=== PATIENT | female | born 1995 | race Caucasian/White ===

== ENCOUNTER 2019-08-12 14:02 | Emergency (ER) | payer BC ==
--- NOTE | 2019-08-12 15:08 | CT ---
CT cervical spine Technique: Multiple axial sections were obtained from above C1 inferiorly to the bottom of T2. Reconstructed sagittal and coronal images were reviewed. Findings: Slight ligamentum nuchal calcification is seen. Vertebral body heights and disc spaces are maintained. No fracture is appreciated within the cervical spine. No abnormal subluxation is identified. No bony central or bony neural foraminal stenosis is seen. Impression: 1. Incidental ligamentum nuchal calcification. 2. Nothing acute is appreciated on CT study of the cervical spine. Diagnostic code #2
--- NOTE | 2019-08-12 15:10 | CT ---
Head CT Technique: Multiple axial sections through the brain were obtained. Intravenous contrast was not utilized. Comparison: [facility] head CT study of 08/17/11. Findings: Ventricles along with basal cisterns and sulci over convexities appear within normal limits for the patient's age. No abnormal parenchymal densities are seen. No evidence of intracranial hemorrhage or mass effect. Bone window settings were reviewed which shows no acute calvarial abnormality. Visualized mastoid sinuses and paranasal sinuses show nothing acute. Impression: 1. Nothing acute is seen on noncontrast head CT exam. Diagnostic code #1
--- NOTE | 2019-08-12 15:54 | EDM.PDOC ---
ED HPI GENERAL MEDICAL PROBLEM - General Chief Complaint: Head Injury Stated Complaint: BUCKED OFF HORSE HEAD INJURY Time Seen by Provider: 08/12/19 14:29 Source of Information: Reports: Patient, Family History Limitations: Reports: No Limitations - History of Present Illness INITIAL COMMENTS - FREE TEXT/NARRATIVE: The patient presents after being bucked off of her horse with a headache, neck pain and tailbone pain. She was getting off her horse and he bucked. She landed on her buttocks and then head. She has a headache but no numbness or weakness. She has some neck pain. She has pain to her coccyx. She hurt it back in January. She had no LOC. She walked in to the ER. Onset: Sudden Duration: Minutes: Location: Reports: Head, Neck, Other (Coccyx) Quality: Reports: Sharp Severity: Moderate Improves with: Reports: None Worsens with: Reports: None Associated Symptoms: Reports: Headaches. Denies: Chest Pain, Fever/Chills, Nausea/Vomiting, Shortness of Breath Head Pain Score (Numeric/FACES): 6 - Related Data Allergies Allergy/AdvReac Type Severity Reaction Status Date / Time latex Allergy Rash Verified 08/12/19 14:15 Penicillins Allergy Rash Verified 08/12/19 14:15 Home Meds: Home Meds Ethinyl Estradiol/Drospirenone [Hortencia 3 mg-0.02 mg Tablet] 1 each PO DAILY 08/12 [History] Past Medical History Cardiovascular History: Reports: None Respiratory History: Reports: None Gastrointestinal History: Reports: None Genitourinary History: Reports: None FNP History: Reports: None Neurological History: Reports: None Psychiatric History: Reports: None Endocrine/Metabolic History: Reports: None Hematologic History: Reports: None Immunologic History: Reports: None Oncologic (Cancer) History: Reports: None Dermatologic History: Reports: None - Infectious Disease History Infectious Disease History: Reports: None - Past Surgical History Head Surgeries/Procedures: Reports: None HEENT Surgical History: Reports: Oral Surgery Other Musculoskeletal Surgeries/Procedures:: Left hand surgery. Social & Family History - Tobacco Use Smoking Status *Q: Never Smoker - Caffeine Use Caffeine Use: Reports: Coffee - Recreational Drug Use Recreational Drug Use: No ED ROS GENERAL - Review of Systems Review Of Systems: See Below Constitutional: Reports: No Symptoms HEENT: Reports: No Symptoms Respiratory: Reports: No Symptoms Cardiovascular: Reports: No Symptoms Endocrine: Reports: No Symptoms GI/Abdominal: Reports: No Symptoms : Reports: No Symptoms Musculoskeletal: Reports: Neck Pain, Other (Coccyx pain) ED EXAM, HEAD INJURY - Physical Exam Exam: See Below Exam Limited By: No Limitations General Appearance: Alert, No Apparent Distress Head: Atraumatic, Normocephalic Ears: Normal External Exam Nose: Normal Inspection Neck: Tenderness (Mild midline tenderness) Respiratory: No Respiratory Distress, Lungs Clear, Normal Breath Sounds Cardiovascular: Regular Rate, Rhythm, No Edema, No Murmur GI/Abdominal Exam: Soft, Non-Tender, No Organomegaly, No Mass Back Exam: Normal Inspection Extremities: Normal Inspection Course - Vital Signs Last Recorded V/S: Last Vital Signs Temp 98.5 F 08/12/19 14:12 Pulse 90 08/12/19 14:12 Resp 16 08/12/19 14:12 BP 117/72 08/12/19 14:12 Pulse Ox 100 08/12/19 14:12 - Re-Assessments/Exams Free Text/Narrative Re-Assessment/Exam: 08/12/19 15:[address] of her head and cervical spine and they looked good. I will discharge her home. Departure - Departure Time of Disposition: 15:55 Disposition: Home, Self-Care 01 Condition: Good Clinical Impression: Concussion injury of brain, Animal-rider injured by fall from or being thrown from horse in noncollision accident, initial encounter, Coccyx pain - Discharge Information *PRESCRIPTION DRUG MONITORING PROGRAM REVIEWED*: No *COPY OF PRESCRIPTION DRUG MONITORING REPORT IN PATIENT RADHA: No Referrals: Sophia Rios MD [Primary Care Provider] - 1 Week Additional Instructions: Try to take it easy the next couple of days. Take tylenol or motrin for any pain. Please return if you are worse.
== END 2019-08-12 16:18 | disposition home or self-care (01) ==
LOC: JD.ED 14:02
DX: S06.0X0A Concussion without loss of consciousness, initial encounter (principal); M53.3 Sacrococcygeal disorders, not elsewhere classified; Z88.0 Allergy status to penicillin; Z91.040 Latex allergy status; V80.010A Animal-rider injured by fall from or being thrown from horse in noncollision accident, initial encounter; Y93.89 Activity, other specified
CPT/HCPCS: 70450; 70450-26; 72125; 72125-26; 99283; 99284-25

== ENCOUNTER 2021-08-02 08:29 | Emergency (ER) | payer BC ==
[2021-08-02] MEDS ORDERED: HYDROmorphone 0.5 MG/0.5 ML Syringe IVPUSH ONE (09:05)
[2021-08-02] MEDS ORDERED: Metoclopramide 10 MG/2 ML SDV IVPUSH ONE (09:05)
--- NOTE | 2021-08-02 09:13 | EDM.PDOC ---
ED HPI GENERAL MEDICAL PROBLEM - General Chief Complaint: Trauma Stated Complaint: BUCKED OFF HORSE THIS AM Time Seen by Provider: 08/02/21 09:08 Source of Information: Reports: Patient, Family History Limitations: Reports: No Limitations - History of Present Illness INITIAL COMMENTS - FREE TEXT/NARRATIVE: 26-year-old female who is in good health presents to the ED after being bucked off a horse this morning at approximately 0745 hrs. She believes the saddle horn hit her in the right lower quadrant of the abdomen just above the inguinal ligament making it very difficult to walk or flex her hip on the right side. She denies hitting her head or hurting her neck. No back pain no rib pain she believes she landed a bit on her left shoulder but has no significant discomfort in the shoulder at this time. Pain is primarily right lower quadrant of the abdomen. She rates it as 8 out of 10. Denies possibility of . Has not voided since time of injury. She is on oral contraceptive control. She is allergic to latex and penicillin. Onset: Today, Sudden Onset Date: 08/02/21 Onset Time: 07:45 Duration: Minutes:, Getting Worse Location: Reports: Abdomen (Right lower quadrant of the abdomen just above the inguinal ligament) Quality: Reports: Ache Severity: Moderate Improves with: Reports: Rest Worsens with: Reports: Movement (Any attempt to flex or fully weight-bear on the right leg causes significant pain in the right lower quadrant of the abdomen) Context: Reports: Trauma (Bucked off a horse this morning.). 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: Other (see below) (None.) Right Pelvic Pain Score (Numeric/FACES): 9 - Related Data Allergies Allergy/AdvReac Type Severity Reaction Status Date / Time latex Allergy Rash Verified 08/02/21 09:01 Penicillins Allergy Rash Verified 08/02/21 09:01 Home Meds: Home Meds Ethinyl Estradiol/Drospirenone [Hortencia 3 mg-0.02 mg Tablet] 1 each PO DAILY 11/29 [History] oxyCODONE HCl/Acetaminophen [Percocet 5-325 mg Tablet] 1 each PO Q4H PRN #15 tablet 08/02/21 [Rx] Past Medical History Cardiovascular History: Reports: None Respiratory History: Reports: None Gastrointestinal History: Reports: None Genitourinary History: Reports: None [employer] History: Reports: None Neurological History: Reports: None Psychiatric History: Reports: None Endocrine/Metabolic History: Reports: None Hematologic History: Reports: None Immunologic History: Reports: None Oncologic (Cancer) History: Reports: None Dermatologic History: Reports: None - Infectious Disease History Infectious Disease History: Reports: None - Past Surgical History Head Surgeries/Procedures: Reports: None HEENT Surgical History: Reports: Oral Surgery Other Musculoskeletal Surgeries/Procedures:: Left hand surgery. Social & Family History - Caffeine Use Caffeine Use: Reports: Coffee - Living Situation & Occupation Living situation: Reports: Single Occupation: Employed Review of Systems - Review of Systems Review Of Systems: See Below Constitutional: Reports: No Symptoms Eyes: Reports: No Symptoms Ears: Reports: No Symptoms Nose: Reports: No Symptoms Mouth/Throat: Reports: No Symptoms Respiratory: Reports: No Symptoms Cardiovascular: Reports: No Symptoms GI/Abdominal: Reports: No Symptoms Genitourinary: Reports: No Symptoms Musculoskeletal: Reports: No Symptoms Skin: Reports: No Symptoms Neurological: Reports: No Symptoms Psychiatric: Reports: No Symptoms ED EXAM, GENERAL - Physical Exam Exam: See Below Exam Limited By: No Limitations General Appearance: Alert, WD/WN, Mild Distress, Other (Temperature is 36.2 degrees heart rate 54 and sinus respiratory is 18 with O2 sats 100% room air. BP is 103/61) Throat/Mouth: Normal Inspection, Normal Lips, Normal Oropharynx, Other Head: Atraumatic (No injury to the tongue or dentition), Normocephalic Neck: Normal Inspection, Supple, Non-Tender, Full Range of Motion. No: Carotid Bruit, Lymphadenopathy (L), Lymphadenopathy (R) Respiratory/Chest: No Respiratory Distress, Lungs Clear, Normal Breath Sounds, No Accessory Muscle Use, Other Cardiovascular: Normal Peripheral Pulses, Regular Rate, Rhythm, No Edema, No Gallop, No Murmur (No pain on firm compression of chest wall and sternum), No Rub Peripheral Pulses: 3+: Carotid (L), Carotid (R), Posterior Tibial (L), Posterior Tibial (R), Dorsalis Pedis (L), Dorsalis Pedis (R) GI/Abdominal: Normal Bowel Sounds, Soft, No Organomegaly, No Distention, Guarding, Tender (Tenderness right lower quadrant just above the inguinal ligament and above the pubic symphysis and slightly lateral to this area. There is mild erythema in this area. There is guarding in this area) Back Exam: Normal Inspection, Full Range of Motion. No: CVA Tenderness (L), CVA Tenderness (R) Extremities: Normal Inspection, Non-Tender, No Pedal Edema, Other (Full range of motion of both upper extremities no pain over the clavicles or acromioclavicular joints. She has pain with any attempt to fully trying to fully flex or stand with full weight on her right lower extremity in her lower abdomen and pelvis area.) Neurological: Alert, Oriented, CN II-XII Intact, Normal Cognition Psychiatric: Normal Affect, Anxious Skin Exam: Warm, Dry, Intact, Normal Color, No Rash Course - Vital Signs Last Recorded V/S: Last Vital Signs Temp 36.2 C 08/02/21 08:58 Pulse 60 08/02/21 11:14 Resp 16 08/02/21 11:14 BP 101/60 08/02/21 11:14 Pulse Ox 100 08/02/21 11:14 - Orders/Labs/Meds Orders: Active Orders 24 hr Category Date Time Status Dextrose 5%-0.9% NaCl [Dextrose 5%-Normal Saline] 1,000 Med 08/02/21 09:15 Active ml IV ASDIRECTED Medication Orders Dextrose/Sodium Chloride (Dextrose 5%-Normal Saline) 1,000 mls @ 150 mls/hr IV ASDIRECTED LESLIE Last Admin: 08/02/21 09:23 Dose: 150 mls/hr Documented by: FRANSISCO Labs: Laboratory Tests 08/02/21 08/02/21 08/02/21 Range/Units 09:45 09:45 10:28 WBC 9.42 (3.98-10.04) K/mm3 RBC 4.20 (3.98-5.22) M/mm3 Hgb 13.0 (11.2-15.7) gm/dl Hct 39.3 (34.1-44.9) % MCV 93.6 (79.4-94.8) fl MCH 31.0 (25.6-32.2) pg MCHC 33.1 (32.2-35.5) g/dl RDW Std Deviation 41.3 (36.4-46.3) fL Plt Count 241 (182-369) K/mm3 MPV 10.4 (9.4-12.3) fl Neut % (Auto) 75.5 H (34.0-71.1) % Lymph % (Auto) 16.3 L (19.3-51.7) % Hayes % (Auto) 6.6 (4.7-12.5) % Eos % (Auto) 1.1 (0.7-5.8) Baso % (Auto) 0.4 (0.1-1.2) % Neut # (Auto) 7.11 H (1.56-6.13) K/mm3 Lymph # (Auto) 1.54 (1.18-3.74) K/mm3 Hayes # (Auto) 0.62 H (0.24-0.36) K/mm3 Eos # (Auto) 0.10 (0.04-0.36) K/mm3 Baso # (Auto) 0.04 (0.01-0.08) K/mm3 Sodium 139 (136-145) mEq/L Potassium 4.3 (3.5-5.1) mEq/L Chloride 105 (98-107) mEq/L Carbon Dioxide 28 (21-32) mEq/L Anion Gap 10.3 (5-15) BUN 18 (7-18) mg/dL Creatinine 1.1 H (0.55-1.02) mg/dL Est Cr Clr Drug Dosing TNP Estimated GFR (MDRD) 59 (>60) mL/min BUN/Creatinine Ratio 16.4 (14-18) Glucose 78 (70-99) mg/dL Calcium 8.3 L (8.5-10.1) mg/dL Total Bilirubin 0.4 (0.2-1.0) mg/dL AST 23 (15-37) U/L ALT 33 (14-59) U/L Alkaline Phosphatase 64 (46-116) U/L Total Protein 6.7 (6.4-8.2) g/dl Albumin 3.1 L (3.4-5.0) g/dl Globulin 3.6 gm/dL Albumin/Globulin Ratio 0.9 L (1-2) Amylase 69 (25-115) U/L Urine Color Yellow (Yellow) Urine Appearance Slt cloudy H (Clear) Urine pH 7.0 (5.0-8.0) Ur Specific Sapello 1.015 (1.005-1.030) Urine Protein Negative (Negative) Urine Glucose (UA) Negative (Negative) Urine Ketones Negative (Negative) Urine Occult Blood Negative (Negative) Urine Nitrite Negative (Negative) Urine Bilirubin Negative (Negative) Urine Urobilinogen 0.2 (0.2-1.0) Ur Leukocyte Esterase Negative (Negative) Urine RBC 0-5 (0-5) /hpf Urine WBC 5-10 H (0-5) /hpf Ur Epithelial Cells 5-10 H (0-5) /hpf Urine Bacteria Few (FEW) /hpf Urine Mucus Not seen (FEW) /hpf Meds: Medications Generic Name Dose Route Start Last Admin Trade Name Freq PRN Reason Stop Dose Admin Dextrose/Sodium Chloride 1,000 mls @ 150 mls/hr 08/02/21 09:15 08/02/21 09:23 Dextrose 5%-Normal Saline IV 150 mls/hr ASDIRECTED LESLIE Administration Discontinued Medications Generic Name Dose Route Start Last Admin Trade Name Freq PRN Reason Stop Dose Admin Hydromorphone HCl 0.5 mg 08/02/21 09:05 08/02/21 09:25 Hydromorphone 0.5 Mg/0.5 Ml Syringe IVPUSH 08/02/21 09:06 0.5 mg ONETIME ONE Administration Iopamidol 100 ml 08/02/21 09:14 08/02/21 09:38 Iopamidol 612 Mg/Ml 100 Ml Bottle IVPUSH 08/02/21 09:15 100 ml ONETIME ONE Administration Metoclopramide HCl 7.5 mg 08/02/21 09:05 08/02/21 09:24 Metoclopramide 10 Mg/2 Ml Sdv IVPUSH 08/02/21 09:06 7.5 mg ONETIME ONE Administration Sodium Chloride 10 ml 08/02/21 09:14 08/02/21 09:38 Sodium Chloride 0.9% 10 Ml Syringe FLUSH 08/02/21 09:15 10 ml ONETIME ONE Administration - Radiology Interpretation Free Text/Narrative:: 26-year-old female presents to the ED after being bucked off a horse this morning. Injury occurred about an hour and a quarter prior to arrival in the ED. She believes that the saddle horn struck her in the right lower quadrant of her abdomen just above the inguinal ligament making it extremely difficult to put any weight on her right lower extremity or flex her hip indicating injury to the iliopsoas musculature. She has not voided since time of injury. She denies possibility of and is on oral control. No other injuries identified on examination. Patient will be given IV fluids D5 normal saline 150 mils per hour. Routine labs ordered including a serum amylase and CMP. She will have CT of the abdomen and pelvis with IV contrast. Given Dilaudid 0.5 mg IV and Reglan 7.5 mg IV for pain and nausea relief. - Re-Assessments/Exams Free Text/Narrative Re-Assessment/Exam: 08/02/21 10:17 White count is normal at 9.42. Auto differential shows 75.5% neutrophils. Hemoglobin is 13.0 with hematocrit of 39.3 and platelet count of 241,000. Sodium 139 with a potassium of 4.3 chloride 105 with a bicarb of 28. Anion gap is 10.3 BUN is 18 with a creatinine of 1.1 estimated GFR is 59. Glucose is 78 with a calcium of 8.3 slightly low. Liver function is normal. Total protein is 6.7 with albumin fraction of 3.1. Serum amylase is 69. 08/02/21 10:18 CT of the abdomen and pelvis has been performed with IV contrast only. Liver shows no focal abnormality. Spleen size is normal. Pancreas appears to be within normal limits. Adrenal glands appear normal. Kidneys show symmetric contrast enhancement. No hydronephrosis or mass is seen. Gallbladder contains no calcified gallstones. Abdominal aorta shows no aneurysm. No retroperitoneal adenopathy or mesenteric abnormalities are seen. Appendix is seen which is normal. No pelvic mass or adenopathy is seen. Delayed images show contrast within the distal ureters and within the bladder. No contrast extravasation is seen. Increase stool is appreciated throughout the colon. Very minimal inflammatory changes seen within the right inguinal region com patible with minimal change from trauma. There is no focal fluid collections being seen. No abdominal musculature abnormalities were seen. Bone window settings were obtained no acute osseous abnormalities are identified. At this time she believes she could void and we will obtain a urinalysis to make sure there is been no contusion to the urinary bladder 08/02/21 11:12 Urinalysis reveals 5-10 white blood cells per high-power field with some epithelial cells suggesting contamination. There is no blood in the urine. Patient and her mother were advised. She will be discharged home to pursue activity as tolerated. Ice pack to the right lower quadrant for 1/2-hour out of every 4 hours today and tomorrow to reduce swelling. Motrin 600 mg every 6 hours to relieve pain and inflammation. Percocet tabs 5 325 mg strength 1 or 2 every 4-6 hours if necessary for pain relief for the next 3 to 4 days. Departure - Departure Time of Disposition: 11:13 Disposition: Home, Self-Care 01 Condition: Fair Clinical Impression: Abdominal wall contusion Qualifiers: Encounter type: initial encounter Qualified Code(s): S30.1XXA - Contusion of abdominal wall, initial encounter - Discharge Information *PRESCRIPTION DRUG MONITORING PROGRAM REVIEWED*: Not Applicable *COPY OF PRESCRIPTION DRUG MONITORING REPORT IN PATIENT RADHA: Not Applicable Prescriptions: oxyCODONE HCl/Acetaminophen [Percocet 5-325 mg Tablet] 1 each PO Q4H PRN #15 tablet PRN Reason: Abdominal wall contusion Referrals: Sophia Rios MD [Primary Care Provider] - Forms: ED Department Discharge Additional Instructions: Evaluation in the emergency room today in regards to injuries sustained from being bucked off a horse this morning. Injuries primarily to the right lower quadrant of the abdomen just above the inguinal ligament with contusion to the abdominal wall evident on examination. CT scan of the abdomen and pelvis was performed and reveals no internal organ damage or bony injury to the pelvis. Urinalysis proved to be negative for any blood in the urine to suggest bladder contusion or injury. Expect the pain in the right lower quadrant to get worse over the next 24 to 48 hours. Suggest very low level activity for the next 2 days. Ice pack to the area 1/2 hours of every 4 hours today and tomorrow. After this may apply heat to the area. Suggest Motrin 600 mg every 6 hours as needed for relief of pain and inflammation. If pain is not controlled by Motrin totally may use Percocet tab 5/325 mg strength 1 tablet every 4-6 hours as necessary for pain relief in combination with the Motrin. This should be taken with a little bit of food in your stomach as it can cause nausea on empty stomach. The CT does reveal that you do have significant amount of stool throughout the colon compatible with constipation. The pain medication will cause constipation as a side effect. May want to pursue MiraLAX powder 17 g once daily to prevent constipation from occurring until feeling better. I suspect the abdominal wall contusion will be the better part of a week to 10 days to be completely back to normal. Return to primary care physician or provider if any other problems occur. Sepsis Event Note (ED) - Evaluation Sepsis Screening Result: No Definite Risk - Focused Exam Vital Signs: Vital Signs Temp Pulse Resp BP Pulse Ox 08/02/21 11:14 60 16 101/60 100 08/02/21 08:58 36.2 C 54 L 18 103/61 100 - My Orders Last 24 Hours: My Active Orders 08/02/21 09:15 Dextrose 5%-0.9% NaCl [Dextrose 5%-Normal Saline] 1,000 ml IV ASDIRECTED - Assessment/Plan Last 24 Hours: My Active Orders 08/02/21 09:15 Dextrose 5%-0.9% NaCl [Dextrose 5%-Normal Saline] 1,000 ml IV ASDIRECTED
[2021-08-02] MEDS ORDERED: Iopamidol 612 MG/ML 100 ML Bottle IVPUSH ONE (09:14)
[2021-08-02] MEDS ORDERED: Sodium Chloride 0.9% 10 ML Syringe FLUSH ONE (09:14)
[2021-08-02] MEDS ORDERED: Dextrose 5%-0.9% NaCl 1,000 ML IV SCH (09:15)
--- NOTE | 2021-08-02 10:03 | CT ---
CT abdomen and pelvis Technique: Multiple axial sections were obtained from above the dome of the diaphragm inferiorly through the pubic symphysis. Intravenous contrast was utilized. No oral contrast has been given. Delayed images were obtained through the bladder. Reconstructed coronal and sagittal images were obtained. Comparison: Prior right upper quadrant abdominal ultrasound of 10/02/13. Findings: Visualized lung bases show minimal atelectasis or scarring within the left base. Liver shows no focal abnormality. Spleen size is normal. Pancreas appears within normal limits. Adrenal glands appear within normal limits. Kidneys show symmetric contrast enhancement. No hydronephrosis or mass is seen. Gallbladder contains no calcified gallstones. Abdominal aorta shows no aneurysm. No retroperitoneal adenopathy or mesenteric abnormalities are seen. Appendix is seen which is normal. No pelvic mass or adenopathy is seen. Delayed images show contrast within the distal ureters and within the bladder. No contrast extravasation is seen. Increased stool is seen throughout the colon. Very minimal inflammatory change is seen within the upper right inguinal region compatible with minimal change from trauma. There is no focal fluid collections being seen. No abdominal wall musculature abnormalities are seen. Bone window settings were obtained. No acute osseous abnormality is appreciated. Impression: 1. Mild increased stool throughout the colon. 2. Minimal inflammatory change is seen within the right upper inguinal region. This is compatible with minimal change from previous trauma. 3. Other normal findings as described above. Diagnostic code #2
== END 2021-08-02 11:29 | disposition home or self-care (01) ==
LOC: JD.ED 08:29
DX: S30.1XXA Contusion of abdominal wall, initial encounter (principal); Z88.0 Allergy status to penicillin; Z91.040 Latex allergy status; W55.12XA Struck by horse, initial encounter
CPT/HCPCS: 36415; 74177; 80053; 81001; 82150; 85025; 96374; 96375; 99284; J1170; J2765; J7042; Q9967